=== PATIENT | male | born 1955 | race Caucasian/White ===

== ENCOUNTER 2019-11-07 11:46 | Outpatient (CLI) | payer MEDICARE, MEDICAID, SELFPAY | END 2019-11-07 11:47 | disposition home or self-care (01) | DX: H90.3 Sensorineural hearing loss, bilateral (principal) | CPT/HCPCS: 92556; 92567; 92579 ==

== ENCOUNTER 2021-02-05 12:50 | Outpatient (CLI) | payer MEDICARE, MEDICAID, SELFPAY | END 2021-02-05 12:51 | disposition home or self-care (01) | LOC: ANHBWCAUD 12:52 | DX: H90.3 Sensorineural hearing loss, bilateral (principal) | CPT/HCPCS: 92556; 92567; 92579 ==

== ENCOUNTER 2021-03-13 12:58 | Outpatient (RCR) | payer MEDICAID, SELFPAY | END 2021-06-11 23:59 | disposition home or self-care (01) | LOC: ANHBWCAUD 12:58 | DX: Z46.1 Encounter for fitting and adjustment of hearing aid (principal) | CPT/HCPCS: V5014 ==

== ENCOUNTER 2022-10-27 09:20 | Outpatient (CLI) | payer MEDICARE, MEDICAID, SELFPAY | END 2022-10-27 09:21 | disposition home or self-care (01) | LOC: ANHBWCAUD 09:21 | DX: H91.93 Unspecified hearing loss, bilateral (principal) | CPT/HCPCS: 92556; 92567; 92579 ==

== ENCOUNTER 2022-11-24 09:23 | Outpatient (RCR) | payer SELFPAY | END 2023-02-22 23:59 | disposition home or self-care (01) | LOC: ANHBWCAUD 09:23 | DX: Z46.1 Encounter for fitting and adjustment of hearing aid (principal) | CPT/HCPCS: V5014 ==